=== PATIENT | male | born 1975 | race Two or more races ===

== ENCOUNTER 2017-02-22 07:23 | Outpatient (CLI) | payer OTHER ==
[~2017-02-22] VITALS: Ht 152.4 cm; Wt 90.7 kg
[~2017-02-22 07:23] MED LIST: AVAPRO150 MG; CIPRO500 MG; DICLOFENAC POTA50 MG
== END 2017-02-22 07:45 | disposition home or self-care (01) ==
LOC: OFIC 805 07:23
DX: H81.13 Benign paroxysmal vertigo, bilateral (principal)

== ENCOUNTER 2018-10-23 07:22 | Outpatient (CLI) | payer OTHER | END 2018-10-23 07:23 | disposition home or self-care (01) | LOC: RX STUDY 07:22 | DX: N20.1 Calculus of ureter (principal) ==

== ENCOUNTER 2020-08-07 13:33 | Outpatient (CLI) | payer OTHER | END 2020-08-07 13:43 | disposition home or self-care (01) | LOC: RAD 13:33 | PROVIDERS: ATTEND Orthopaedic Surgery | DX: M54.5 Low back pain (principal); M25.562 Pain in left knee ==